=== PATIENT | female | born 1995 | race Caucasian/White ===

== ENCOUNTER 2018-05-23 05:04 | Inpatient (IN) | payer BC ==
[2018-05-23] VITALS (14 sets, daily range): BP systolic 119–153; BP diastolic 76–99; PULSE 70–97; TEMP 97.8–98.7
[~2018-05-23] VITALS: Ht 154.9 cm; Wt 84.1 kg
[2018-05-23 06:10] LABS: BASO % 0.2 % (0.0-2.0); EOS # 0.1 (0.0-0.7); EOS % 0.9 % (0-4.0); GRAN # 7.5 (1.4-6.5); GRAN % 68.1 % (42.2-75.2); HEMOGLOBIN 11.6 g/dl (12.5-16.0); LYMPH # 2.5 (1.2-3.4); LYMPH % 22.9 % (20.0-51.0); MEAN CELL VOLUME 90 fl (80.0-100.0); MEAN CORPUSCULAR HEMOGLOBIN 30 pg (27.0-31.0); MEAN CORPUSCULAR HGB CONC 34 g/dl (33.0-37.0); MEAN PLATELET VOLUME 14.3 fl (7.4-10.4); MONO # 0.8 (0.1-0.6); MONO % 7.6 % (1.7-9.3); PLATELET COUNT 121 K/mm3 (130-400); RED BLOOD COUNT 3.84 M/mm3 (4.10-5.30); REDCELL DISTRIBUTION WIDTH-CV 13.6 % (11.5-14.5)
[2018-05-23 06:11] LABS: HEMATOCRIT 34.6 % (37.0-47.0)
[2018-05-23] MEDS ORDERED: SYNTHROID0.137 MG (06:43)
[2018-05-24 03:15] VITALS: BP 135/98; PULSE 85
[2018-05-24 09:40] VITALS: BP 122/86; PULSE 88; TEMP 98.6
[2018-05-24] MEDS ORDERED: IBU800 M1 PO (10:15)
== END 2018-05-24 11:35 | disposition home or self-care (01) | DRG 775 ==
LOC: LDRO 05:04 → LDR 05:25 → OB 08:05
PROVIDERS: Obstetrics & Gynecology
PROC: 10E0XZZ Delivery of Products of Conception, External Approach (ICD-10-PCS; principal; 2018-05-23)
PROC: 0UQMXZZ Repair Vulva, External Approach (ICD-10-PCS; 2018-05-23)
DX: O70.0 First degree perineal laceration during delivery (principal); Z3A.40 40 weeks gestation of pregnancy; Z37.0 Single live birth; O62.3 Precipitate labor; O99.284 Endocrine, nutritional and metabolic diseases complicating childbirth; E03.9 Hypothyroidism, unspecified
CPT/HCPCS: J2210; J2590; J7120

== ENCOUNTER 2019-05-14 10:36 | Day surgery (SDC) | payer BC ==
[~2019-05-14] VITALS: Ht 154.9 cm; Wt 65.5 kg
[~2019-05-14 10:36] MED LIST: IBU800 M1 PO; SYNTHROID0.137 MG
[2019-05-14 11:07] VITALS: BP 108/80; PULSE 89; TEMP 98.6
--- NOTE | 2019-05-14 11:13 | NUR ---
TO RM 5 AT 1043- CALL LIGHT IN REACH AT BEDSIDE.
[2019-05-14 13:36] VITALS: BP 102/83; PULSE 69
--- NOTE | 2019-05-14 13:36 | NUR ---
TO RM 5 PER CART FROM [facility] ALERT ORIENTED X 3 TALKING TO STAFF AND . DRESSING OVER INCISION CLEAN DRY INTACT. DENIES PAIN OR DISCOMFORT. DENIES N/V.
[2019-05-14 13:50] VITALS: BP 95/68; PULSE 73
[2019-05-14] MEDS ORDERED: MOTRIN 600600 MG/TAB PO (13:50)
--- NOTE | 2019-05-14 13:50 | NUR ---
RECEIVED WATER AND SHERRY CRACKERS.
[2019-05-14] MEDS ORDERED: COLACE 100100 MG/CAP PO (13:51)
[2019-05-14] MEDS ORDERED: PERCOCET 325 MG1 TA2 PO (13:51)
[2019-05-14 14:05] VITALS: BP 86/56; PULSE 66
--- NOTE | 2019-05-14 14:05 | NUR ---
PATIENT DENIES ANY CHANGES. RECEIVED 2ND GLASS WATER
[2019-05-14 14:20] VITALS: BP 92/64; PULSE 70
--- NOTE | 2019-05-14 14:20 | NUR ---
RECEIVED APPLE SAUCE AND 3RD GLASS OF WATER TOLERATED WELL
[2019-05-14 14:30] VITALS: BP 104/77; PULSE 70
--- NOTE | 2019-05-14 14:30 | NUR ---
AMBULATED TO BATHROOM VOIDED AND TOLERATED WELL. DISCONTINUED IV AND INT- CATHETER INTACT. RECEIVED DISCHARGE INSTRUCTIONS WITH AND VERBALIZED UNDERSTANDING. PATIENT GETTING DRESSED
--- NOTE | 2019-05-14 14:45 | NUR ---
DISCHARGED PER WC BY NURSING STAFF TO PRIVATE CAR IN CARE OF - RENNY.
== END 2019-05-14 14:56 | disposition home or self-care (01) ==
LOC: SDCO 10:36
DX: K42.9 Umbilical hernia without obstruction or gangrene (principal); Z82.49 Family history of ischemic heart disease and other diseases of the circulatory system; Z82.3 Family history of stroke; Z80.0 Family history of malignant neoplasm of digestive organs; Z80.3 Family history of malignant neoplasm of breast
CPT/HCPCS: J0690; J2250; J2405; J2704; J3010; J7120